=== PATIENT | female | born 1985 | race Caucasian/White ===

== ENCOUNTER 2018-10-03 21:50 | Inpatient (IN) | payer OTHER ==
[2018-10-03] MEDS ORDERED: TERBUTALINE SULFATE 1 MG/ML VIAL IV PRN (22:23)
[2018-10-03] MEDS ORDERED: IBUPROFEN 600 MG TAB PO PRN (22:23)
[2018-10-03] MEDS ORDERED: LIDOCAINE 1% 300 MG/30 ML SDV SC PRN (22:23)
[2018-10-03] MEDS ORDERED: LR 1,000 ML IV PRN (22:23)
[2018-10-03] MEDS ORDERED: MISOPROSTOL 200 MCG TAB PO PRN (22:23)
[2018-10-03] MEDS ORDERED: AMMONIA AROMATIC 1 EACH AMP IH PRN (22:23)
[2018-10-03] MEDS ORDERED: OXYTOCIN/RINGERS LACTATE 1,000 ML IV PRN (22:23)
[2018-10-03] MEDS ORDERED: EPSOM SALT 454 GM TP PRN (22:23)
[2018-10-03] MEDS ORDERED: OLIVE OIL 118 ML BTL MISC PRN (22:23)
[2018-10-03] MEDS ORDERED: OLIVE OIL 118 ML BTL ONE ×2 (22:25→23:35)
[2018-10-03] MEDS ORDERED: LIDOCAINE 1% 300 MG/30 ML SDV ONE ×2 (22:25→23:34)
[2018-10-03] MEDS ORDERED: MISOPROSTOL 200 MCG TAB ONE ×2 (22:26→23:35)
[2018-10-03] MEDS ORDERED: OXYTOCIN 10 UNIT/ML VIAL ONE ×2 (22:26→23:35)
[2018-10-03] MEDS ORDERED: AMMONIA AROMATIC 1 EACH AMP IH ONE ×2 (22:26→23:35)
[2018-10-03] MEDS ORDERED: TERBUTALINE SULFATE 1 MG/ML VIAL ONE ×2 (22:26→23:35)
[2018-10-03 22:35] LABS: PLATELET COUNT 247 10^3/uL (150-400)
--- NOTE | 2018-10-03 22:36 | PDGENHP ---
History and Physical History and Physical: CARE: [facility] HPI: Patient is a 33 yo G 2 P 1 @ 39.5 weeks that presents to L&D with complaints of strong uterine contractions for past 5-6 hours. EDC: 10/05/18 which is based on LMP: 12/29/17 which is known and consistent with Ultrasound at 9 weeks. Her is complicated by: + CF carrier, rh negative. Review of Systems: Constitutional: Denies any fever, chills, or fatigue HEENT: denies any visual changes, difficulty swallowing, hearing loss Cardiovascular: Denies any chest pain, palpitations, leg swelling Respiratory: denies any cough, wheezing, or shortness of breathe GI: Denies any nausea, vomiting, diarrhea, constipation : denies any dysuria, urgency, frequency, vaginal bleeding Musculoskeletal: denies any muscle or bone pain Skin: denies any rashes Neuro: denies any headache, seizures, lightheadedness, dizziness, or loss of consciousness Psychiatric: denies any depression, anxiety, or SI/HI thoughts HISTORY: Previous OB history: 7#9oz Boy December 2016. Social history: , nurse at [employer] Family history: father, ETOH-ism Past medical history: melanoma L calf 2015 Past surgical history:Append at 12 yo, shoulder surgery 2007 Medications: PNV Allergies (list reaction): NKDA LABS: Rh: O neg ABS: Neg Rubella: Immune HbsAg: NR HIV: NR VDRL: NR 1hr: 91 GC: Neg Chlamydia: Neg Pap: Normal 2016 GBS: neg BMI: (prepreg) 30.5 PHYSICAL EXAM: Constitutional: WN, A&Ox3 HEENT: normocephalic atraumatic, supple Heart: RRR, no murmur Chest: CTA-B Skin: warm, dry, intact Abdomen: Soft, nontender, gravid SVE: 6/90/-1 Extremities: edema, negative homans sign Neuro: grossly normal Psych: normal affect assessment: FHT baseline 130, +accels, no decels, moderate variability Contractions: toco q 2-3 min Assessment: 1) 33 yo G 2 P 1 with IUP@ 39.5 2) spontaneous labor 3) GBS neg 4) Cat 1 FHR tracing Plan: 1) Admit to L&D 2) anticipate
--- NOTE | 2018-10-04 00:26 | OBDEL ---
Info Type: Vaginal Presentation at Delivery: Vertex L&D Analgesia/Anesthesia Type: Nitrous GBS+: No Intrapartum Medications: Generic Name Dose Route Start Last Admin Trade Name [place] PRN Reason Stop Dose Admin Lidocaine HCl 300 mg 10/03/18 22:23 10/04/18 00:13 Lidocaine Hcl 1% SC 04/01/19 22:22 300 mg ONCE PRN Administration episiotomy - Care Provider System Validation Engineer/BEATER DUMPER: Daisy Marvin - Hospital Course Intrapartum: 10/04/18 00:23 Progressed rapidly to complete, nitrous oxide and support of FOB during labor. FHT reassuring. Indications for Delivery: Spontaneous Labor, SROM (light meconium) Vaginal Delivery - Delivery Provider Delivery Physician/CNM: Archana Linder - Labor and Delivery Onset of Contractions Date: 10/03/18 Onset of Contractions Time: 15:00 Onset of Contractions Type: Spontaneous Rupture of Membranes Date: 10/03/18 Rupture of Membranes Time: 23:39 Rupture of Membranes Type: Spontaneous Amniotic Fluid Color: Meconium Stained Dilation Complete Date: 10/03/18 Dilation Complete Time: 23:30 Placenta Delivery Date: 10/04/18 Placenta Delivery Time: 00:05 Total Hours of Labor: 9 Non-surgical Procedures: Episiotomy Episiotomy: Midline (very small episiotomy to L of prior scar) Laceration: 1st Degree Repair: 3-0, Vicryl Vaginal Sponge Count Correct: Yes Vaginal Needle Count Correct: Yes Vaginal Sweep Performed: Yes EBL: 200 Delivery Events: None (compound hand), Other (Specify) [place] Data MARQUTIA: 10/05/18 Gestational Age: 39 week(s) and 6 day(s) La Delivery Date: 10/03/18 Delivery Time: 23:56 Sex of Infant: Female Score (1 Min): 8 Score (5 Min): 9 ICD10 Worksheet Patient Problems: Problems Problem Status Onset 40 weeks gestation of Acute
[2018-10-04] MEDS ORDERED: HYDROCORTISONE 0.5% CREAM TP PRN (00:29)
[2018-10-04] MEDS: ACETAMINOPHEN 325 MG TAB PO SCH ×4 (00:49→19:13)
[2018-10-04] MEDS: IBUPROFEN 600 MG TAB PO SCH ×3 (06:09→19:13)
--- NOTE | 2018-10-04 11:28 | OBPP ---
Progress Note Assessment/Plan: Assessment: [id number] s/p Rh Negative Plan: routine PP care rhogam, baby is A+ support PRN anticipate d/c home tomorrow Subjective/ Course: 10/04/18 11:29 Pt doing well, denies any pain or heavy bleeding. She is ambulating and voiding without difficulty. She is without difficulty. Objective: 10/03/18 22:20 Patient ABO/Rh O NEGATIVE 10/04/18 01:20 Temp Pulse Resp BP Pulse Ox 36.4 C 69 16 111/64 94 10/04/18 08:00 10/04/18 08:00 10/04/18 08:00 10/04/18 08:00 10/04/18 02:10 Uterine Position/Fundal Height: Umbilicus -1, Midline Uterine Tone: Firm
[2018-10-04] MEDS: DOCUSATE SODIUM 100 MG CAP PO PRN (19:13)
[2018-10-05] MEDS: ACETAMINOPHEN 325 MG TAB PO SCH (04:01)
[2018-10-05] MEDS: IBUPROFEN 600 MG TAB PO SCH (04:01)
[2018-10-05] MEDS: DOCUSATE SODIUM 100 MG CAP PO PRN (08:13)
--- NOTE | 2018-10-05 09:10 | OBGCSDC ---
General Delivery Information - General Info : 2 Para: 2 Abortions: 0 Type: Vaginal L&D Analgesia/Anesthesia Type: Nitrous Admission Date: 10/03/18 Labs: Patient ABO/Rh O NEGATIVE 10/04/18 01:20 Hct 39.5 % (38.0-47.0) 10/03/18 22:20 - Hospital Course Intrapartum: 10/04/18 00:23 Progressed rapidly to complete, nitrous oxide and support of FOB during labor. FHT reassuring. : 10/04/18 11:29 Pt doing well, denies any pain or heavy bleeding. She is ambulating and voiding without difficulty. She is without difficulty. 10/05/18 09:08 S) Pt doing well, reports min pain and bleeding. she is ambulating and voiding without difficulty. She is . She desires discharge home today. O) VSS, afebrile constitutional: WNWF, A&Ox3 HEENT: normocephalic, atraumatic, supple Heart: RRR, No murmur Chest: CTA-B Abdomen: Soft, nontender Uterus: Firm at U-2 Lochia: Minimal rubra Perineum: Intact, healing well Extremities: Trace edema, and negative Summer's sign Neuro: Grossly normal A) 33 year-old P2 S/P PPD#2 going well P) Discharge home today Continue - rx for apno cream PRN Pelvic rest x6wks Discussed danger signs (infection, preeclampsia, depression, heavy bleeding, etc) RTO in 2/4/6 weeks Vaginal - Delivery Provider Delivery Physician/CNM: Archana Linder - Diagnosis Labor: Spontaneous Rupture of Membranes Type: Spontaneous Amniotic Fluid Color: Meconium Stained Episiotomy: Midline (very small episiotomy to L of prior scar) Laceration: 1st Degree Repair: 3-0, Vicryl Delivery Events: None (compound hand), Other (Specify) - Procedures Non-surgical Procedures: Episiotomy - Delivery Non-surgical Procedures: Episiotomy EBL: 200 [place] Data MARQUITA: 10/05/18 Gestational Age: 40 week(s) and 0 day(s) [place] Delivery Date: 10/03/18 Delivery Time: 23:56 Sex of Infant: Female [place] Weight (gm): 3532 g Score (1 Min): 8 Score (5 Min): 9 Discharge Information - Discharge Information Prescriptions: Docusate Sodium [Colace 100 MG (*)] 100 mg PO BID PRN #40 cap PRN Reason: Constipation Ibuprofen [Motrin (*)] 600 mg PO Q6H #40 tab Condition: Good Instruction/Follow Up: Two Weeks, Four Weeks, Six Weeks
[2018-10-05 09:45] VITALS: BP 105/72
== END 2018-10-05 13:00 | disposition home or self-care (01) | DRG 807 ==
LOC: FLD 21:50 → FOB 10-04 02:27
PROVIDERS: ADMIT Advanced Practice Midwife; ATTEND Advanced Practice Midwife
PROC: 10E0XZZ Delivery of Products of Conception, External Approach (ICD-10-PCS; principal; 2018-10-03)
PROC: 0HQ9XZZ Repair Perineum Skin, External Approach (ICD-10-PCS; principal; 2018-10-03)
PROC: 0W8NXZZ Division of Female Perineum, External Approach (ICD-10-PCS; principal; 2018-10-03)
DX: O70.0 First degree perineal laceration during delivery (principal); O77.0 Labor and delivery complicated by meconium in amniotic fluid; O32.6XX0 Maternal care for compound presentation, not applicable or unspecified; O26.893 Other specified pregnancy related conditions, third trimester; Z67.91 Unspecified blood type, Rh negative; Z3A.39 39 weeks gestation of pregnancy; Z37.0 Single live birth
CPT/HCPCS: J2590; J3105